=== PATIENT | female | born 2000 | race Caucasian/White ===

== ENCOUNTER 2022-11-01 07:59 | Day surgery (SDC) | payer OTHER ==
[~2022-11-01] VITALS: Ht 157.5 cm; Wt 49.2 kg
[~2022-11-01 07:59] MED LIST: FAMO20TA PO; NS 1,000 ML IV ONE
[2022-11-01] MEDS ORDERED: propofoL 200 MG/20 ML VIAL As Ordered ONE (09:26)
[2022-11-01 10:05] VITALS: BP 95/54
== END 2022-11-01 10:15 | disposition home or self-care (01) ==
LOC: M OPP 07:59
PROVIDERS: ATTEND Internal Medicine Gastroenterology
DX: K64.4 Residual hemorrhoidal skin tags (principal); K64.8 Other hemorrhoids; Z83.79 Family history of other diseases of the digestive system; F17.290 Nicotine dependence, other tobacco product, uncomplicated; Z79.899 Other long term (current) drug therapy

== ENCOUNTER → 2025-03-04 | Outpatient (REF) ==
[~2025-03-04] MED LIST changes: -NS 1,000 ML IV ONE
== END ==
LOC: M LABCFH 13:08
DX: N39.0 Urinary tract infection, site not specified (principal)